=== PATIENT | female | born 1955 | race Caucasian/White ===

== ENCOUNTER 2024-06-27 01:31 | Emergency (ER) | payer MEDICARE, BC, SELFPAY ==
[2024-06-27] VITALS (10 sets, daily range): BP systolic 131–171; BP diastolic 67–101; PULSE 66–97; RESP 11–24; TEMP 36.7–36.9; O2SAT 89–95; BMI 21.1
--- NOTE | 2024-06-27 01:50 | PD.EDFALL ---
ED Fall Injury RME/HPI General Chief Complaint: Fall Stated Complaint: BACK PAIN Time Seen by Provider: 06/27/24 01:48 Arrival date/time: 06/27/24 01:31 RME / HPI RME / HPI Narrative: Dr. Cedeno?s Main ED Evaluation: 69yo female with a history of hyperthyroidism, compression fracture of L1 vertebra BIBA from home presents to the ED for a fall. Patient states she was walking out of the bathroom when she lost her balance and fell backwards and hit her back on the door. She denies any head strikes or loss of consciousness. She reports having worsening lower back pain. She denies any headache, neck pain, chest pain, abdominal pain, extremity pain or any other associated symptoms. No known allergies. Related Data Home Medications ?Medication ?Instructions ?Recorded ?Confirmed buprenorphine 10 mcg/hour weekly 10 mcg topical QWEEK 07/25/23 09/25/23 transdermal patch diphenhydramine HCl 25 mg capsule 25 mg PO TID PRN Sleep 07/25/23 09/25/23 (Benadryl) hydrocodone 10 mg-acetaminophen 1 tab PO BID 07/25/23 09/25/23 325 mg tablet levothyroxine 150 mcg tablet 150 mcg PO QDAY 07/25/23 09/25/23 rivaroxaban 10 mg tablet (Xarelto) 10 mg PO DAILY 07/25/23 09/25/23 Held on 07/26/23. Instructions: Resume on 08/09/23. take 5mg daily for 2 weeks then full dose vortioxetine 10 mg tablet 10 mg PO DAILY 07/25/23 09/25/23 (Trintellix) Previous Rx's ?Medication ?Instructions ?Recorded doxycycline hyclate 100 mg tablet 100 mg PO BID #14 tabs 07/26/23 gabapentin 300 mg capsule 300 mg PO .qhs #30 caps 07/26/23 sennosides 8.6 mg-docusate sodium 1 tab-cap PO QDAY #30 tabs 07/26/23 50 mg tablet (Senna-S) Allergies Allergy/AdvReac Type Severity Reaction Status Date / Time No Known Allergies Allergy Verified 07/26/23 07:02 Review of Systems Review of Systems Systems Reviewed: All systems reviewed, normal except as documented ED Exam Narrative Physical exam: GENERAL APPEARANCE: alert and oriented x 4, well-developed, well-nourished, no acute distress VITALS: All vitals were reviewed and the pulse ox is % on room air, which is normal according to my interpretation. HEENT: Normocephalic, atraumatic; pupils equal, round, reactive to light; EOMI; mucous membranes pink, moist; oropharynx clear NECK: Supple LUNGS: CTABL; no wheezes, no rales, no rhonchi HEART: Regular rate, regular rhythm; normal S1, S2; no murmurs ABDOMEN: non distended; normal BS; soft, no tenderness, no guarding, no rebound; no masses, no organomegaly, no hernia BACK: no CVA tenderness; abrasion midline to the lower T spine and upper L spine area with tenderness and odd step-off at the lower T spine area EXTREMITIES: atraumatic; no edema NEUROLOGIC: awake; alert and oriented x4; cranial nerves II-XII grossly intact; no focal sensory or motor deficits PSYCHIATRIC: appropriate mood and affect SKIN: warm, dry, normal color; no rashes Course Quality Measures none Orders Category Date Time Status In and Out Catheter X1 Care 06/27/24 02:[address] lumbar spine wo con Stat Exams 06/27/24 02:05 Taken XR pelvis 1-2V Stat Exams 06/27/24 02:05 Taken Urinalysis Stat Lab 06/27/24 03:25 Completed HYDROmorphone INJ [Dilaudid Inj] Med 06/27/24 04:45 Active 0.5 mg IVP Q30MIN PRN Ondansetron Inj [Zofran Inj] Med 06/27/24 04:44 Discontinued 4 mg IV X1 ONE Reevaluation(s) Reevaluation #1: Patient states her pain is now severe. Pain medication ordered. Time: 04:44 Vital Signs Vital signs: Vital Signs Temperature 98.0 F 06/27/24 01:57 Pulse Rate 66 06/27/24 01:57 Respiratory Rate 20 06/27/24 01:57 Blood Pressure 150/70 H 06/27/24 01:57 Pulse Oximetry (%) 94 L 06/27/24 01:57 Oxygen Delivery Method Room Air 06/27/24 01:57 Fall MDM Narrative MDM Narrative:: Scribe Attestation: 06/27/24 - Gloria Hair am scribing for and in the presence of Dr. Cedeno. 0441: Spoke with [facility] transfer center, who states their neurosurgeon, Dr. Gonzales, does not do kypholplasty. 0449: Spoke with [facility] transfer center. Awaiting on callback. Patient data External records reviewed:: [facility] previous records (Per chart review, patient was seen here on 05/23/20 for compression fracture of L1 vertebra) Clinical information provided by:: patient Social determinants that could affect healthcare access:: none Patient has the following chronic illnesses:: hyperthyroidism How is presenting disease/condition affected by chronic disease/condition?: uneffected by Evaluation data The following diagnostics were reviewed and interpreted by me:: lab results and radiology exam(s) Lab and/or radiology exams considered but not ordered:: none Interpretation Summary: Pelvic x-ray is negative for fracture, dislocation or foreign body, according to my interpretation. Telerad Preliminary Report Draft Patient: KHALIF BURDEN [facility]. Record#: [id number] Birthdate: 1955 Age/Sex: 69 / F Location: [facility] Attending Dr: Ordering Physician: Date of Service: Procedure(s): Accession Number(s): cc: ~ CT scan of the lumbar spine without intravenous contrast (axial sections with sagittal and coronal reformats). June 27, 2024 at 0331 hours Clinical History: pain after fall Comparison: None Findings: There is generalized osteopenia. There is severe compression fracture of L1 with complete flattening of the body of the L1 vertebra, this may represent a subacute fracture. There is severe posterior retropulsion at L1 approximately 9.5 mm, effacing the ventral subarachnoid space. There is widening of the T12-L1 and L1-L2 interspinous spaces which may indicate posterior ligamentous disruption. Also suspect ligament disruption of the posterior longitudinal ligament at the L1 level. There is an acute to subacute appearing mild inferior endplate compression fracture of L4. There is very minimal posterior retropulsion at the inferior aspect of L4. There are multilevel degenerative changes and spondylosis of the lumbar spine with multilevel foraminal stenosis. There are bibasilar pulmonary densities which may represent chronic interstitial change and/or atelectasis/pneumonia. Impression: 1. Severe L1 compression fracture with severe posterior retropulsion at L1, probably subacute. Suspect ligamentous disruption at the L1 level. 2. Mild acute to subacute inferior endplate compression fracture at L4. Recommend spinal precautions, neurosurgical consultation and MRI lumbar spine for further evaluation if clinically feasible. 3. Bibasilar pulmonary densities which may represent chronic interstitial change and/or atelectasis/pneumonia. 4. Other findings as described above. Discussion Details: Results verbally communicated to : Dr. Cedeno at 04:10 AM 06/27/2024 Report Electronically Signed By: Francis Webber 06/27/2024 4:28:37 AM Medications / Prescriptions Medications or Prescriptions considered but not ordered:: none Medication administrations:: Medication Administration History Hydromorphone HCl (Hydromorphone Inj 2 Mg/Ml Vial) 0.5 mg IVP Q30MIN PRN PRN Reason: PAIN Stop: 07/02/24 04:44 Last Admin: 06/27/24 05:16 Dose: 0.5 mg Documented By: OLIVIA Discontinued Medications Ondansetron HCl (Ondansetron Inj 2 Mg/Ml Inj 2 Ml) 4 mg IV X1 ONE; Protocol Stop: 06/27/24 04:45 Last Admin: 06/27/24 05:16 Dose: 4 mg Documented By: CB see above Consultations Consultation(s) initiated? (list below): No Diagnosis Fall Differential Diagnosis: other (compression fx, facet fx, spinal cord injury, musculoskeletal pain, renal contusion) Most likely diagnosis given after review of the tests above:: see below Admission Indicated Admission indicated?: not indicated Admission Request Was there a request for admission?: No Disposition Plan Disposition Plan: other (specify) (Signed out to Dr. Delarosa at 0600 pending transfer for neurosurgery.) Discharge Plan Prescriptions/Referrals Prescriptions/Med Rec: No Action hydrocodone-acetaminophen 10-325 mg tablet 1 tab PO BID diphenhydramine HCl [Benadryl] 25 mg Capsule 25 mg PO TID PRN (Reason: Sleep) levothyroxine 150 mcg Tablet 150 mcg PO QDAY buprenorphine 10 mcg/hour Patch Weekly 10 mcg TOPICAL QWEEK Patient Comments: Last applied 07/18/23 right chest Xarelto 10 mg tablet 10 mg PO DAILY Trintellix 10 mg tablet 10 mg PO DAILY sennosides-docusate sodium [Senna-S] 8.6-50 mg tablet 1 tab-cap PO QDAY Qty: 30 0RF gabapentin 300 mg capsule 300 mg PO .qhs Qty: 30 0RF doxycycline hyclate 100 mg tablet 100 mg PO BID Qty: 14 0RF Referrals: Meet Tam MD [Primary Care Provider] - In 1 week Problem List Clinical Impression: Compression fracture Patient/Caregiver Discharge Instructions Print Language: Irish
--- NOTE | 2024-06-27 02:05 | XR_ITS ---
Examination: CT lumbar spine, without contrast. 2-D sagittal reconstructions. 2-D coronal reconstructions. 3-D reconstructions. Date and time of exam:June 27, 2024 0331 hours INDICATIONS: History lumbar spine fracture 3 years ago, patient fell 3 hours ago with injury to lower back, lower back pain CTDI: vol (mGy):17 DLP: (mGycm):474 Technique: Multiple 1.25 mm axial sections of the lumbar spine without intravenous contrast have been obtained. 2-D sagittal and coronal reconstructions have been obtained. 3-D reconstructions have been obtained. Low dose protocols were performed. One or more of the following dose reduction techniques were used; automated exposure control, adjustment of the mA and/or KV according to patient size, use of iterative reconstruction technique. Findings: Severe osteopenia Severe compression fracture 90% plus L1 vertebral body, noted on the December 11, 2023 exam Acute fracture L4 vertebral body depression inferior endplate The pedicles and laminae at this level appear intact Adequate alignment of this vertebral body No focal lumbar disc protrusion IMPRESSION: Acute fracture L4 vertebral body, reduction in height 30% Satisfactory alignment of this vertebral body Severe chronic compression L1, 90% plus, retropulsion of this vertebral body at the 7 mm
--- NOTE | 2024-06-27 02:05 | XR_ITS ---
Examination: AP pelvis single view Technique: AP portable pelvis single view Exam date and time: June 27, 2024 0213 hrs. Indications: Patient fell today with injury to the pelvis, pelvic pain. Findings: No hip fractures or dislocations Suspicious for nondisplaced fracture left inferior pubic ramus Severe osteopenia Impression: Suspicious for nondisplaced fracture left inferior pubic ramus, consider CT scan pelvis follow-up as clinically warranted
[2024-06-27 04:03] LABS: Collection Type, Urine Catheter; Squamous Epithelial Cell,Urine 0 /hpf (0-5)
[2024-06-27 04:12] LABS: Bilirubin,Urine Negative (Negative); Blood,Urine Trace (Negative); Clarity,Urine Turbid (Clear/Hazy); Color,Urine Yellow (Lt Yel-Yel); Glucose, Urine Negative (Negative); Ketones,Urine Negative (Negative); Leukocyte Esterase,Urine Positive (Negative); Nitrite,Urine Negative (Negative); PH,Urine 6.5 (5.0-7.0); Protein,Urine Trace (Neg - Trace); RBC,Urine 6 /hpf (0-3); Specific Gravity,Urine 1.021 (1.001-1.035); WBC,Urine 35 /hpf (0-5)
--- NOTE | 2024-06-27 04:29 | PRELIM_ITS ---
CT scan of the lumbar spine without intravenous contrast (axial sections with sagittal and coronal reformats). June 27, 2024 at 0331 hours Clinical History: pain after fall Comparison: None Findings: There is generalized osteopenia. There is severe compression fracture of L1 with complete flattening of the body of the L1 vertebra, this may represent a subacute fracture. There is severe posterior retropulsion at L1 approximately 9.5 mm, effacing the ventral subarachnoid space. There is widening of the T12- L1 and L1-L2 interspinous spaces which may indicate posterior ligamentous disruption. Also suspect ligament disruption of the posterior longitudinal ligament at the L1 level. There is an acute to subacute appearing mild inferior endplate compression fracture of L4. There is very minimal posterior retropulsion at the inferior aspect of L4. There are multilevel degenerative changes and spondylosis of the lumbar spine with multilevel foraminal stenosis. There are bibasilar pulmonary densities which may represent chronic interstitial change and/or atelectasis/pneumonia. Impression: 1. Severe L1 compression fracture with severe posterior retropulsion at L1, probably subacute. Suspect ligamentous disruption at the L1 level. 2. Mild acute to subacute inferior endplate compression fracture at L4. Recommend spinal precautions, neurosurgical consultation and MRI lumbar spine for further evaluation if clinically feasible. 3. Bibasilar pulmonary densities which may represent chronic interstitial change and/or atelectasis/pneumonia. 4. Other findings as described above. Discussion Details: Results verbally communicated to : Dr. Cedeno at 04:10 AM 06/27/2024 Report Electronically Signed By: Francis Webber 06/27/2024 4:28:37 AM [EST]
--- NOTE | 2024-06-27 04:36 | PC.NURSE ---
[facility] AND [facility] FAXED PAPERWORK FOR POSSIBLE NEUROSURGERY TRANSFER
--- NOTE | 2024-06-27 04:50 | PC.NURSE ---
ZAIN OLSON STATED NEEDED HIGHER LEVER OF CARE
--- NOTE | 2024-06-27 04:50 | PC.NURSE ---
IMAGES PUSHED TO [facility] THROUGH SYNAP[facility], MARTITA FROM [facility] GETTING CLINICALS FROM MD MORRELL
[2024-06-27] MEDS: HYDROmorphone INJ 2 MG/ML VIAL 0.5 MG IVP (05:16)
[2024-06-27] MEDS: ONDANSETRON INJ 2 MG/ML INJ 2 ML 4 MG IV (05:16)
--- NOTE | 2024-06-27 05:20 | PC.NURSE ---
PATIENT A PATIENT OF DR SWENSON AT [facility], PAPERWORK FAXED FOR POSSIBLE GI TRANSFER
--- NOTE | 2024-06-27 06:20 | EDNOTE_ITS ---
Emergency Room Addendum Addendum Narrative: 0600: Care assumed from Dr. Cedeno, the previous shift emergency physician. Past medical, surgical, social and family history reviewed. Vitals and home medications reviewed. I will assume the care of the patient at this time, pending transfer for neurosurgery services. Please refer to the emergency department record for history and examination from initial visit.? EMS notes reviewed by me. Nursing notes reviewed by me. Vital signs reviewed by me. [facility] medical records reviewed by me. 69 year old female with history of chronic mid back pain, compression fracture of L1 vertebra, on [place] and Fentanyl patch presented to the ED this morning for evaluation after fall this morning. Patient reports intermittent dizziness and last night while walking in her home she became dizzy and stumbled backwards; her back landing on the door where she then slid straight down to her buttocks/gluteus. No head injury or LOC. States she has chronic mid back pain however today pain is in the lower back. 0650: On my physical exam, patient has swelling and tenderness over L4-L5 area. I spoke with transfer center at [facility], reports their surgeon has reviewed images and stated the patient has brittle bones surrounding the fracture and is not a candidate for surgical intervention. Recommended pain control. Patient reports at home she takes [place] and has noticed that Tylenol provides some relief. Will send patient home for a prescription of [place] 5-325mg QID. 1305: Patient was queued for discharge and the expressed concerns of taking the patient home. States he is unable to help her into or out of the truck or into their home. financial services officer made aware. 1430: ASW has arranaged home health services with [facility]. Transportation with [facility] has been arranged. Patient and amenable with plan. DISPOSITION: Home with home health DIAGNOSIS: Compression fracture
--- NOTE | 2024-06-27 07:36 | PC.NURSE ---
Patient laying in gurney, attempting to rest, no apparent distress noted. Updated with plan of care and call light is within reach. Patient pending transfer for neurology.
--- NOTE | 2024-06-27 10:59 | PC.CM ---
I reviewed notes and I see patient was declined by [facility]. Notes stated transfer was initiated with [facility]. I called and spoke to Maddy at [facility] and she states her doctor has been in surgery and they are waiting for him to review information. I will update charge nurse.
--- NOTE | 2024-06-27 12:31 | PC.NURSE ---
Pt. here from home to room 16, pt. states she fell last night and landed on her back, spouse at bedside and states that pt. has a hx of falls. Spouse states that the pt. is incontinent. Pt. states she has weak bones. Spouse states he is the one caring for pt. Pt. denies loss of LOC.
[2024-06-27] MEDS: ACETAMINOPHEN IVPB 1,000 MG/100 ML VIAL 250 MG IV (12:38)
--- NOTE | 2024-06-27 13:06 | PC.NURSE ---
states he has concerns about taking pt. home, states he's not even sure how he will get pt. home. Informed Dr. Delarosa, Dr. Delarosa states to consult SS. SS informed.
--- NOTE | 2024-06-27 13:23 | PC.CC ---
ASWMasha was consulted regarding SNF placement for patient. Patient has not had 3 midnight stays within the last 30 days. ASWMasha met with patient face to face introduced, self, role, and reason for visit. Patient presented as alert and oriented to self, location, and situation. Patient was made aware that her insurance does not cover SNF placement without the 3 midnight stays. ASW explored with patient if she was open to Home Health. Patient stated she is open to referral for home health.Patient does not have a preferred agency for home health. ASW to submitted referral via [facility] for Home health.
--- NOTE | 2024-06-27 14:45 | PC.CC ---
ASW, provided patient and , Dinesh who is at bedside with [email or web address] and their telephone number. ASW made them aware that transportation was arranged with [facility] for [phone]. Patient and thanked ASW.
--- NOTE | 2024-06-27 15:02 | PC.CM ---
patient transfer was initiated during the night for neurosurgery. [facility] declined patient and [facility] was reviewing. Dr. Delarosa spoke to [facility] and they reviewed patient and they stated patient does not need an acute trasnfer. Dr. Delarosa cancelled transfer request.
--- NOTE | 2024-06-27 17:14 | PC.CC ---
Addendum entered by Masha Mehta 06/27/24 17:29: [facility] Sunday06/29/24 Original Note: YVONWMasha was contacted by [facility] who reports their sales route driver called out and cannot waste picker the patient no transportation available. ASW arranged transportation with [facility] signed by community youth secretary Sara via [facility].
--- NOTE | 2024-06-27 17:24 | PC.NURSE ---
pt. has a Buprenorphine patch to her right upper arm.
--- NOTE | 2024-06-27 17:30 | PC.NURSE ---
Pt. turned and repositioned.
[2024-06-27] MEDS: HYDROcodone/APAP 10/325 TAB PO (17:41)
--- NOTE | 2024-06-27 17:51 | PC.NURSE ---
Dr. Delarosa states to send pt. home with the gamble in.
== END 2024-06-27 18:03 | disposition home or self-care (01) ==
PROVIDERS: Emergency Medicine; Emergency Provider Emergency Medicine; PCP Family Medicine
DX: M48.56XA Collapsed vertebra, not elsewhere classified, lumbar region, initial encounter for fracture (principal)
CPT/HCPCS: 72131; 72170; 81001; 96365; 96375; 99284; J0131; J2405; J3490; A9270

== ENCOUNTER 2024-06-30 18:29 | Emergency (ER) | payer MEDICARE, BC, SELFPAY ==
[2024-06-30 18:34] VITALS: BP 162/81; PULSE 71; RESP 20; TEMP 36.8; O2SAT 94
[2024-06-30 19:01] VITALS: PULSE 90; RESP 20; O2SAT 97; BMI 21.4
[2024-06-30 19:53] LABS: Collection Type, Urine Catheter
[2024-06-30 20:12] LABS: Bacteria,Urine 2+; Bilirubin,Urine Negative (Negative); Blood,Urine 2+ (Negative); Budding Yeast,Urine Present; Color,Urine Yellow (Lt Yel-Yel); Glucose, Urine Negative (Negative); Ketones,Urine Negative (Negative); Leukocyte Esterase,Urine Positive (Negative); Nitrite,Urine Positive (Negative); PH,Urine 6.5 (5.0-7.0); Protein,Urine 1+ (Neg - Trace); RBC,Urine 47 /hpf (0-3); Squamous Epithelial Cell,Urine 1 /hpf (0-5); Urobilinogen,Urine Negative mg/dL (0.0-1.0); WBC,Urine 822 /hpf (0-5)
[2024-06-30 20:17] LABS: Clarity,Urine Turbid (Clear/Hazy); Culture Indicated,Urine Yes
--- NOTE | 2024-06-30 20:40 | EDNOTE_ITS ---
<Statement entered by Valentina Alcocer MD - 07/01/24 01:45> As co-signing physician, I was present and available for consult prn. I concur with the plan and care as documented by the midlevel provider. ED General RME/HPI General Chief complaint: Urogenital-Female Stated complaint: DAVIS CATHETER DISLODGED Time Seen by Provider: 06/30/24 18:31 Arrival date/time: 06/30/24 18:29 CC: Low center abdominal pain and leaking Davis catheter HPI patient was seen here 3 days ago for fall resulting in vertebral body fracture. at bedside states the patient has been incontinent for years and now this Davis's catheter has been in for the past 3 days. The patient denies fever nausea vomiting or any other complaint. Related Data Home Medications ?Medication ?Instructions ?Recorded ?Confirmed buprenorphine 10 mcg/hour weekly 10 mcg topical QWEEK 07/25/23 09/25/23 transdermal patch diphenhydramine HCl 25 mg capsule 25 mg PO TID PRN Sle ep 07/25/23 09/25/23 (Benadryl) hydrocodone 10 mg-acetaminophen 1 tab PO BID 07/25/23 09/25/23 325 mg tablet levothyroxine 150 mcg tablet 150 mcg PO QDAY 07/25/23 09/25/23 rivaroxaban 10 mg tablet (Xarelto) 10 mg PO DAILY 07/0609/25/23 Held on 07/26/23. Instructions: Resume on 08/09/23. take 5mg daily for 2 weeks then full dose vortioxetine 10 mg tablet 10 mg PO DAILY 07/25/2309/05 (Trintellix) Previous Rx's ?Medication ?Instructions ?Recorded doxycycline hyclate 100 mg tablet 100 mg PO BID #14 ta bs 07/26/23 gabapentin 300 mg capsule 300 mg PO .qhs #30 caps 07/06 05/30 sennosides 8.6 mg-docusate sodium 1 tab-cap PO QDAY #3 0 tabs 07/26/23 50 mg tablet (Senna-S) acetaminophen 325 mg tablet 325 mg PO QID PRN pain #30 tabs 06/27/24 (Tylenol) ciprofloxacin HCl 500 mg tablet 500 mg PO BID #14 tabs 06/30/24 (Cipro) Allergies Allergy/AdvReac Type Severity Reaction Status Date / Time No Known Allergies Allergy Verified 07/26/23 07:02 Review of Systems Review of Systems Narrative Review of Systems: GEN: No fever, no chills, no weight loss EYES: No discharge, no visual changes, no pain HEENT: No ear pain, no congestion, no sore throat PULM: No shortness of breath, no cough, no congestion CV: No chest pain, no dyspnea on exertion, no palpitations GI: No nausea, no vomiting, no diarrhea, no pain, no constipation : No frequency, no urgency, no dysuria MUSC/SKEL: No joint pain, no back pain SKIN: No rash PSYCH: No hallucinations, no depression HEME/LYMPH: No easy bleeding or bruising tendencies NEURO: No weakness, no headache Past Medical History Past Medical History NEUROLOGIC: Positive Neurological Disorders, Cerebrovascular Accident and Transient Ischemic Attacks (TIA); Negative Seizures or Peripheral Neuropathy CARDIAC: Negative Cardiac Disorders or Congestive Heart Failure RESPIRATORY: Negative Chronic Obstructive Pulmonary Disease (COPD) GASTROINTESTINAL: Negative Gastrointestinal Disorders or Hepatitis GENITOURINARY: Positive Genitourinary Disorders and Kidney Stones; Negative Renal Disease REPRODUCTIVE: Positive Previous Pregnancies (3) MUSCULOSKELETAL: Positive Arthritis, Degenerative Disk Disease and Fibromyalgia ENDOCRINE: Positive Endocrine Disorders and Hyperthyroidism; Negative Diabetes Mellitus Type 1 or Diabetes Mellitus Type 2 HEMATOLOGIC: Negative Blood Disorders PSYCHO/SOCIAL: Positive Depression OTHER HISTORY: Positive Hospitalization (surgery), Chicken Pox and Measles; Negative Autoimmune Disease, Shingles, Blood Transfusions, Blood Transfusion Reaction, Anesthesia Reactions or Cancer Family History FAMILY HISTORY: Positive Family Respiratory Disorders and Family Surgery; Negative Family Psychiatric Problems, Family Cardiac Disorders, Family Gastrointestinal Problems, Family Cancer or Family Anesthesia Reaction Surgical History SURGICAL: Positive Abdominal Surgery and Tubal Ligation Social History SMOKING STATUS: Never smoker SUBSTANCE USE: does not use ED Exam Narrative Physical exam: [General: Obese not in cot no acute distress Head normocephalic HEENT: Within acceptable limits Neck is supple nontender Chest equal chest rise nontender to palpation Respiratory: Clear to auscultation no wheezes crackles or rubs CV: Rate rhythm is regular no murmurs rubs or clicks Abdomen is soft nontender no masses positive bowel sounds all 4 quadrants Back: No CVA tenderness no spinous process tenderness from cervical spine thoracic and lumbar spine Skin: Intact no petechiae rash induration ulceration or crepitus Extremities: Moving all extremity against resistance cap refill less than 2 seconds neurosensory intact Neuro: Awake alert oriented x3 Glascow coma 15 no focal deficits] Course Quality Measures none Orders Category Date Time Status Urinalysis, C/S if Indicated Stat Lab 06/30/24 19:25 Completed Urine Culture Stat Lab 06/30/24 19:25 Received cefTRIAXone [Rocephin] 1,000 mg Med 06/30/24 20:39 Discontinued Lidocaine 1% 20 ml [Xylocaine 1% 20 ML] 2.1 ml IM X1 Vital Signs Vital signs: Vital Signs Temperature 98.2 F 06/30/24 18:34 Pulse Rate 71 06/30/24 18:34 Respiratory Rate 20 06/30/24 18:34 Blood Pressure 162/81 H 06/30/24 18:34 Pulse Oximetry (%) 94 L 06/30/24 18:34 Oxygen Delivery Method Room Air 06/30/24 18:34 [facility] Patient data External records reviewed:: [facility] previous records and EMS form Clinical information provided by:: patient and EMS Social determinants that could affect healthcare access:: none Patient has the following chronic illnesses:: Recent lumbar fracture How is presenting disease/condition affected by chronic disease/condition?: uneffected by Evaluation data The following diagnostics were reviewed and interpreted by me:: lab results and radiology exam(s) Lab and/or radiology exams considered but not ordered:: CBC shows no acute leukocytosis anemia thrombocytopenia CMP shows no acute electrolyte imbalances renal [place] transaminitis or T. bili elevation. Urine is positive for UTI Interpretation Summary: UTI Medications Medications considered but not ordered:: none Medication administrations:: Medication Administration History Discontinued Medications Ceftriaxone Sodium 1,000 mg/ (Lidocaine HCl 2.1 ml) 0 mg IM X1 ONE Stop: 06/30/24 20:40 nonoe Consultations Consultation(s) initiated? (list below): No Diagnosis Differential Diagnosis ED Complaint MDM: UTI pyelonephritis Davis failure Most likely diagnosis given after review of the tests above:: Patient Admission Indicated Admission indicated?: not indicated Explain why admission is indicated or not indicated:: Patient Admission Request Was there a request for admission?: No Disposition Plan Disposition Plan: Discharge Discharge Attestation Discharge Attestation: The patient and all family members were given an opportunity to ask questions and understood the discharge instructions. Discharge instructions specifically effects, indications for sooner follow up or return to the emergency department, and the expected course of current diagnosis. Patient condition: Stable Medical Decision Making Differential Diagnosis Differential Diagnosis: UTI pyelonephritis Davis failure Lab Data Labs: Lab Results 06/30/24 Range/Units 19:25 Ur Collection Type Catheter Urine Color Yellow (Lt Yel-Yel) Urine Clarity Turbid A (Clear/Hazy) Urine pH 6.5 (5.0-7.0) Ur Specific [place] 1.020 (1.001-1.035) Urine Protein 1+ A (Neg - Trace) Urine Glucose (UA) Negative (Negative) Urine Ketones Negative (Negative) Urine Blood 2+ A (Negative) Urine Nitrite Positive (Negative) Urine Bilirubin Negative (Negative) Urine Urobilinogen (Auto) Negative (0.0-1.0) mg/dL Ur Leukocyte Esterase Positive (Negative) Urine RBC 47 H (0-3) /hpf Urine WBC 822 H (0-5) /hpf Ur Squamous Epith Cells 1 (0-5) /hpf Urine Bacteria 2+ A (None) Urine Yeast (Budding) Present A (None) Ur Culture Indicated? Yes Discharge Plan Plan Patient Disposition: HOME (Self Care) Patient condition on transfer: Stable Prescriptions/Referrals Prescriptions/Med Rec: New ciprofloxacin HCl [Cipro] 500 mg tablet 500 mg PO BID Qty: 14 0RF No Action hydrocodone-acetaminophen 10-325 mg tablet 1 tab PO BID diphenhydramine HCl [Benadryl] 25 mg Capsule 25 mg PO TID PRN (Reason: Sleep) levothyroxine 150 mcg Tablet 150 mcg PO QDAY buprenorphine 10 mcg/hour Patch Weekly 10 mcg TOPICAL QWEEK Patient Comments: Last applied 07/18/23 right chest Xarelto 10 mg tablet 10 mg PO DAILY Trintellix 10 mg tablet 10 mg PO DAILY sennosides-docusate sodium [Senna-S] 8.6-50 mg tablet 1 tab-cap PO QDAY Qty: 30 0RF gabapentin 300 mg capsule 300 mg PO .qhs Qty: 30 0RF doxycycline hyclate 100 mg tablet 100 mg PO BID Qty: 14 0RF acetaminophen [Tylenol] 325 mg tablet 325 mg PO QID PRN (Reason: pain) Qty: 30 0RF Referrals: Meet Tam MD [Primary Care Provider] - In 1 week Problem List Clinical Impression: Urinary tract infection Patient/Caregiver Discharge Instructions Other Activity Instructions:: Take the medications as prescribed follow-up with your primary care doctor if there is a worsening of symptoms return the emergency room medially for further evaluation. Education Materials: ED CYSTITIS Female Adult Print Language: Lithuanian Stand Alone Forms: Katina Award Info., Patient Portal Info Letter PA/CLARA Supervising Physician PA/DIE POLISHER Supervising Physician: Florencio Pinedo ENP
[2024-06-30] MEDS: cefTRIAXone 1,000 MG, LIDOCAINE 1% 20 ML 2.1 ML IM (21:10)
== END 2024-06-30 22:15 | disposition home or self-care (01) ==
PROVIDERS: Registered Nurse General Practice; Emergency Provider Emergency Medicine; PCP Family Medicine
DX: N39.0 Urinary tract infection, site not specified (principal)
CPT/HCPCS: 81001; 87077; 87086; 87186; 96372; 99283; J0696; J3490

== ENCOUNTER → 2025-03-31 | Outpatient (CLI) | payer MEDICARE, SELFPAY ==
[2025-03-31 10:36] LABS: Basophils # (Auto) 0.0 Thou/mm3 (0.0-0.2); Basophils % (Auto) 1 % (0-2.5); Eosinophils # (Auto) 0.2 Thou/mm3 (0.0-0.5); Eosinophils % (Auto) 2 % (0-10); Hematocrit 39.8 % (36.0-46.0); Hemoglobin 13.1 g/dL (12.0-16.0); Immature Granulocytes Auto 0.04 Thou/mm3 (0.00-0.00); Lymphocytes # (Auto) 2.2 Thou/mm3 (1.0-4.8); Lymphocytes % (Auto) 27 % (10-50); Mean Corpuscular HGB Conc 32.9 g/dl (31.0-37.0); Mean Corpuscular Hemoglobin 32.4 pg (25.0-35.0); Mean Corpuscular Volume 99 fL (80-100); Monocytes # (Auto) 0.8 Thou/mm3 (0.0-0.8); Monocytes % (Auto) 10 % (0-12); Neutrophils # (Auto) 4.9 Thou/mm3 (1.8-7.7); Neutrophils % (Auto) 61 % (37-80); Nucleated Red Blood Cell # 0.00 Thou/mm3 (0.00-0.00); Nucleated Red Blood Cell % 0 /100 WBC (0); Platelet Count 234 Thou/mm3 (140-440); RDW Standard Deviation 50.8 fL (36.4-46.3); Red Blood Count 4.04 Miln/mm3 (4.00-5.20); White Blood Count 8.1 Thou/mm3 (3.6-11.0)
[2025-03-31 11:27] LABS: Alanine Aminotransferase 13 U/L (10-49); Albumin, Serum 4.5 gm/dL (3.4-4.8); Albumin/Globulin Ratio 1.6 (1.2-2.2); Anion Gap 9 (7-16); Aspartate Amino Transferase 18 U/L (0-34); BUN/Creatinine Ratio 16 Ratio (12-20); Bilirubin,Total 0.4 mg/dL (0.3-1.2); Blood Urea Nitrogen 19 mg/dL (9-23); Calcium 10.0 mg/dL (8.3-10.6); Calcium (Corrected) 10.0 mg/dL (8.5-10.1); Carbon Dioxide 30.5 mMol/L (20.0-31.0); Chloride 100 mMol/L (98-107); Creatinine (Component) 1.2 mg/dL (0.6-1.3); Globulin 2.8 gm/dL (2.3-3.5); Glucose 113 mg/dL (74-106); Osmolality,Calculated 280 (275-295); Potassium 3.9 mMol/L (3.4-5.1); Sodium 139 mMol/L (136-145); Thyroid Stimulating Hormone 0.05 uIU/mL (0.55-4.78); Total Protein 7.3 gm/dL (5.7-8.2); eGFR 49 See Note
[2025-03-31 11:46] LABS: Amphetamine/Methamp Scrn,U Negative (Negative); Barbiturate Screen,Urine Negative (Negative); Benzodiazepines Screen,Urine Negative (Negative); Benzoylecgonine Screen, Ur Negative (Negative); Fentanyl Screen,Urine Negative (Negative); Opiate Screen,Urine Positive (Negative); THC Screen,Urine Negative (Negative)
[2025-03-31 11:46] LABS: Alkaline Phosphatase 106 U/L (46-116)
[2025-03-31 12:50] LABS: T4 (Thyroxine) 10.8 mcg/dL (4.5-10.9)
== END | disposition home or self-care (01) ==
PROVIDERS: PCP Family Medicine; Referring Provider Family Medicine; Visit Provider Family Medicine
DX: E11.65 Type 2 diabetes mellitus with hyperglycemia (principal); M47.26 Other spondylosis with radiculopathy, lumbar region; M79.7 Fibromyalgia
CPT/HCPCS: 36415; 80053; 80307; 84436; 84443; 85025

== ENCOUNTER → 2025-04-21 | Outpatient (CLI) | payer MEDICARE, SELFPAY ==
[2025-04-21 16:08] LABS: Collection Type, Urine Clean Catch
[2025-04-21 17:57] LABS: Bacteria,Urine 1+; Bilirubin,Urine Negative (Negative); Blood,Urine 2+ (Negative); Color,Urine Yellow (Lt Yel-Yel); Glucose, Urine Negative (Negative); Ketones,Urine Negative (Negative); Leukocyte Esterase,Urine Positive (Negative); Nitrite,Urine Positive (Negative); PH,Urine 6.0 (5.0-7.0); Protein,Urine 1+ (Neg - Trace); RBC,Urine 49 /hpf (0-3); Specific Gravity,Urine 1.020 (1.001-1.035); Squamous Epithelial Cell,Urine 4 /hpf (0-5); Urobilinogen,Urine Negative mg/dL (0.0-1.0); WBC,Urine 737 /hpf (0-5)
[2025-04-21 18:00] LABS: Clarity,Urine Hazy (Clear/Hazy)
== END | disposition home or self-care (01) ==
LOC: COPL 15:13 → SLDO 15:21
PROVIDERS: PCP Family Medicine; Referring Provider Family Medicine; Visit Provider Family Medicine
DX: N39.0 Urinary tract infection, site not specified (principal)
CPT/HCPCS: 81001; 87077; 87086; 87186